=== PATIENT | male | born 1945 | race Hispanic/Latino ===

== ENCOUNTER → 2018-08-01 | Outpatient (CLI) | payer OTHER | END | disposition home or self-care (01) | LOC: SHCH 09:14 | PROVIDERS: ATTEND Internal Medicine Cardiovascular Disease | DX: I65.23 Occlusion and stenosis of bilateral carotid arteries (principal) | CPT/HCPCS: 93880 ==

== ENCOUNTER → 2018-09-20 | Outpatient (CLI) | payer OTHER | END | disposition home or self-care (01) | LOC: RAH 08:31 | PROVIDERS: ATTEND Internal Medicine Cardiovascular Disease | DX: R94.31 Abnormal electrocardiogram [ECG] [EKG] (principal); R06.00 Dyspnea, unspecified; R55 Syncope and collapse | CPT/HCPCS: 78452; 93017; A9500 ×2 ==

== ENCOUNTER 2018-11-14 07:18 | Day surgery (SDC) | payer OTHER ==
[2018-11-11 10:30] VITALS: BP 175/78
[2018-11-11 11:13] LABS: BASOPHILS % (AUTO) 0.7 % (0.0-5.0); EOSINOPHILS % (AUTO) 8.6 % (0.0-8.0); HEMATOCRIT 40.2 % (42-54); LYMPHOCYTES % (AUTO) 18.2 % (21.0-51.0); MEAN CORPUSCULAR HEMOGLOBIN 29.3 pg (27.0-33.0); MEAN CORPUSCULAR HGB CONC 33.2 g/dL (32.0-36.0); MONOCYTES % (AUTO) 7.7 % (3.0-13.0); NEUTROPHILS % (AUTO) 64.8 % (40.0-77.0); PLATELET COUNT (AUTO) 351 K/uL (130-400); RED BLOOD CELL COUNT(AUTO) 4.57 MIL/uL (4.50-6.20); RED CELL DISTRIBUTION WIDTH 13.4 % (11.0-15.5); WHITE BLOOD COUNT (AUTO) 8.7 K/uL (4.8-10.8)
[2018-11-11 11:13] LABS: APPEARANCE,URINE Clear (CLEAR); BILIRUBIN,URINE Negative (NEGATIVE); COLOR,URINE Yellow (YELLOW); GLUCOSE, URINE (UA) Negative (NEGATIVE); KETONES,URINE Negative (NEGATIVE); LEUKOCYTE ESTERASE ,URINE Moderate (NEGATIVE); NITRATE,URINE Negative (NEGATIVE); OCCULT BLOOD,URINE Negative (NEGATIVE); PROTEIN,URINE POS 1+ mg/dL (NEGATIVE); UROBILINOGEN,URINE 0.2 mg/dL (0.2-1.0)
[2018-11-11 11:23] LABS: POTASSIUM 4.7 mmol/L (3.5-5.1)
[2018-11-11 11:38] LABS: BACTERIA,URINE Rare /HPF (None Seen); RBC,URINE 0-1 /HPF (0-1); SQUAMOUS EPITHELIAL CELL,UR Rare /HPF (0-2)
[2018-11-11 11:40] LABS: INR 0.98 (0.85-1.15); PARTIAL THROMBOPLASTIN TIME 31.1 SEC (26.3-35.5); PROTHROMBIN TIME 10.3 SEC (9.6-11.6)
[~2018-11-14] VITALS: Ht 166.4 cm; Wt 66.5 kg
[2018-11-14] VITALS (17 sets, daily range): BP systolic 112–149; BP diastolic 56–72
[~2018-11-14 07:18] MED LIST: AMLO-310 PO; ASPI-1181 PO; CLOP75TA32 PO; ISOS30TA6 PO; LEVO50 PO; METF-444 PO; METO25TA6 PO; MULT-1289 PO; PRAV40TA3 PO; PROSTATE PO; SODIUM CHLORIDE 0.9% 500ML 500 ML IV SCH
--- NOTE | 2018-11-14 09:05 | NUR ---
ASSESSMENT PT HERE FOR PROCEDURE. DENIES ANY CHEST PAIN OR DISCOMFORT. FAMILY AT BEDSIDE.
--- NOTE | 2018-11-14 12:00 | NUR ---
PROCEDURE PT TAKEN TO PROCEDURE VIA CORPORATE DEVELOPMENT OFFICER PERSONNEL ANGELICA MADDEN. FAMILY AT BEDSIDE.
[2018-11-14] MEDS ORDERED: LIDOCAINE HCL 2% 20ML ONE (12:06)
[2018-11-14] MEDS ORDERED: IOHEXOL-350 50ML VIAL IV ONE (12:06)
[2018-11-14] MEDS ORDERED: IOHEXOL 350 MG/ML 100ML INFUS..BTL IV ONE (12:06)
[2018-11-14] MEDS ORDERED: NITROGLYCERIN 5 MG/ML 10 ML VIAL IV ONE (12:06)
[2018-11-14] MEDS ORDERED: BIVALIRUDIN 250 MG/VIAL IV ONE (12:06)
[2018-11-14] MEDS ORDERED: FENTANYL CITRATE PF 50 MCG/1 ML 2ML VIAL ONE (12:35)
[2018-11-14] MEDS ORDERED: MIDAZOLAM HCL 1 MG/ML 2ML VIAL ONE (12:35)
[2018-11-14] MEDS ORDERED: HYDRALAZINE HCL 20 MG/ML VIAL ONE (13:02)
[2018-11-14] MEDS ORDERED: SODIUM CHLORIDE 0.9% 1000ML 1,000 ML IV SCH (13:08)
[2018-11-14] MEDS ORDERED: DEXTROSE 50%-WATER 50 ML DISP.SYRIN IV PRN (13:15)
[2018-11-14] MEDS ORDERED: HYDRALAZINE HCL 20 MG/ML VIAL IV PRN (13:15)
[2018-11-14] MEDS ORDERED: GLUCAGON 1MG KIT 1 MG ML IM PRN (13:15)
--- NOTE | 2018-11-14 13:19 | NUR ---
ASSESSMENT RECEIVED PT FROM STRAP MACHINE OPERATOR AUTOMATIC STAFF ANGELICA KNIGHT. PT DOING WELL. DENIES ANY COMPLAINTS. [address] TO RIGHT GROIN. SOFT TO TOUCH. WILL BE DISCONTINUED. INSTRUCTED PT AND FAMILY ON IMPORTANCE OF KEEPING RIGHT LEG STRAIGHT AND NOT LIFTING HEAD UP OFF OF BED. PT VERBALIZED UNDERSTANDING.
[2018-11-14] MEDS ORDERED: ATROPINE SULFATE 0.1 MG/ML 10 ML SYG IVP ONE (13:38)
--- NOTE | 2018-11-14 14:20 | NUR ---
SHEATH SHEATH DISCONTINUED TO RIGHT GROIN USING MANUAL PRESSURE AND DSTAT DRSG IN PLACE. PT TOLERATED PROCEDURE WELL. DENIES ANY PAIN. INSTRUCTED ON IMPORTANCE AGAIN OF NOT MOVING RIGHT LEG. VERBALIZED UNDERSTANDING.
[2018-11-14] MEDS ORDERED: INSULIN HUMULIN R 100 UNIT/ML 3ML SQ SCH (16:30)
--- NOTE | 2018-11-14 16:30 | NUR ---
DISCHARGE ORAL AND WRITTEN DISCHARGE INSTRUCTIONS GIVEN TO PT AND PTS FAMILY. NO OTHER QUESTIONS AT THIS TIME. GROIN SITE TO RIGHT LEG SOFT TO TOUCH. NO BLEEDING, OOZING NOTED TO SITE.
== END 2018-11-14 17:20 | disposition home or self-care (01) ==
LOC: DAH 07:18
PROVIDERS: ATTEND Internal Medicine Cardiovascular Disease
DX: I25.118 Atherosclerotic heart disease of native coronary artery with other forms of angina pectoris (principal); I11.0 Hypertensive heart disease with heart failure; I50.32 Chronic diastolic (congestive) heart failure; Z95.5 Presence of coronary angioplasty implant and graft; Z79.84 Long term (current) use of oral hypoglycemic drugs; Z79.899 Other long term (current) drug therapy; E78.5 Hyperlipidemia, unspecified; K21.9 Gastro-esophageal reflux disease without esophagitis; Z98.890 Other specified postprocedural states; Z83.3 Family history of diabetes mellitus; I65.21 Occlusion and stenosis of right carotid artery
CPT/HCPCS: 36415; 71045; 80048; 81001; 82948 ×2; 85025; 85610; 85730; 93005; 93458; A4606; C1894 ×2; J0360; J1644; J3490 ×2; Q9965; Q9967 ×2; J0461; J0583; J2250; J3010

== ENCOUNTER → 2020-11-04 | Outpatient (CLI) | payer OTHER ==
[~2020-11-04] MED LIST changes: -ASPI-1181 PO; +ASPI-1443 PO; -ISOS30TA6 PO; +ISOS30TA92 PO; -SODIUM CHLORIDE 0.9% 500ML 500 ML IV SCH
== END | disposition home or self-care (01) ==
LOC: SHCH 07:41
PROVIDERS: ATTEND Internal Medicine Cardiovascular Disease
DX: R09.89 Other specified symptoms and signs involving the circulatory and respiratory systems (principal)
CPT/HCPCS: 93880

== ENCOUNTER → 2021-07-04 | Outpatient (CLI) | payer OTHER | END | disposition home or self-care (01) | LOC: RAH 08:15 | PROVIDERS: ATTEND Internal Medicine Gastroenterology | DX: K82.4 Cholesterolosis of gallbladder (principal); K76.0 Fatty (change of) liver, not elsewhere classified | CPT/HCPCS: 76700 ==

== ENCOUNTER → 2022-01-19 | Outpatient (CLI) | payer OTHER | END | disposition home or self-care (01) | LOC: SHCH 10:02 | PROVIDERS: ATTEND Internal Medicine Cardiovascular Disease | DX: I65.23 Occlusion and stenosis of bilateral carotid arteries (principal); I35.8 Other nonrheumatic aortic valve disorders; I51.7 Cardiomegaly; I25.119 Atherosclerotic heart disease of native coronary artery with unspecified angina pectoris; Z98.890 Other specified postprocedural states | CPT/HCPCS: 93306; 93880 ==

== ENCOUNTER → 2022-09-18 | Outpatient (CLI) | payer OTHER ==
[~2022-09-18] MED LIST changes: +REGADENOSON 0.4 MG/5 ML PF SYG IVP ONE
== END | disposition home or self-care (01) ==
LOC: SHCH 07:52
PROVIDERS: ATTEND Internal Medicine Cardiovascular Disease
DX: I25.118 Atherosclerotic heart disease of native coronary artery with other forms of angina pectoris (principal); I11.9 Hypertensive heart disease without heart failure
CPT/HCPCS: 78452; 96374; 93017; J2785; A9500 ×2